=== PATIENT | male | born 1955 | race Caucasian/White ===

== ENCOUNTER → 2016-08-06 | Outpatient (CLI) | payer MEDICARE | END | disposition home or self-care (01) | LOC: PCVCIMAG 12:36 | PROVIDERS: ATTEND Internal Medicine Cardiovascular Disease | DX: I25.10 Atherosclerotic heart disease of native coronary artery without angina pectoris (principal); I73.9 Peripheral vascular disease, unspecified; I10 Essential (primary) hypertension; E78.5 Hyperlipidemia, unspecified | CPT/HCPCS: 80061; 93005; 93925; G0463 ==

== ENCOUNTER → 2017-02-15 | Outpatient (CLI) | payer MEDICARE ==
--- NOTE | 2017-02-16 00:10 | PCVCIMAG ---
EXAM: RIGHT LOWER EXTREMITY ARTERIAL DUPLEX INDICATION: Peripheral Arterial Disease. Leg pain. FINDINGS: Right Leg: Satisfactory arterial waveforms in the common femoral artery. 90% stenosis at the origin of the profunda femoral artery. 70-80% stenosis in the mid superficial femoral artery. The popliteal artery is patent. The anterior tibial, peroneal, and posterior tibial arteries are patent. IMPRESSION: 70-80% stenosis mid right superficial femoral artery. LOC:[id number]
== END | disposition home or self-care (01) ==
LOC: PCVCIMAG 12:48
PROVIDERS: ATTEND Internal Medicine Cardiovascular Disease
DX: I25.10 Atherosclerotic heart disease of native coronary artery without angina pectoris (principal); E78.5 Hyperlipidemia, unspecified; I10 Essential (primary) hypertension; I70.201 Unspecified atherosclerosis of native arteries of extremities, right leg; F17.200 Nicotine dependence, unspecified, uncomplicated; Z79.82 Long term (current) use of aspirin; Z90.5 Acquired absence of kidney; Z79.899 Other long term (current) drug therapy; Z88.8 Allergy status to other drugs, medicaments and biological substances
CPT/HCPCS: 36415; 80061; 93005; 93926; G0463

== ENCOUNTER → 2017-06-22 | Outpatient (CLI) | payer MEDICARE ==
[~2017-06-22] MED LIST: DIAZEPAM 10 MG TABLET. ONE; EPINEPHrine 1 MG/ML VIAL ONE; EPTIFIBATIDE BOLUS 2,000 MCG/ML 10ML VIAL. IV ONE; HEPARIN SODIUM 5,000 UNIT/ML VIAL for PCVC. ONE; HEPARIN for ARTERIAL LINE 1,500 ML ONE; IODIXANOL 270 MG/ML 100 ML VIAL. ONE; IOHEXOL 350 MG/ML 100 ML VIAL. ONE; IV NORMAL SALINE 1000ML BAG 1,000 ML ONE; LIDOCAINE 1% Multi-Dose 20 ML VIAL. ONE; MIDAZOLAM HCL/PF 2 MG/2 ML VIAL. ONE; NITROGLYCERIN PREMIX 250 ML IV ONE; fentaNYL PF VIAL 100 MCG/2 ML VIAL ONE; hydrALAZINE 20 MG/ML VIAL. ONE
--- NOTE | 2017-06-22 19:12 | PCVCINTER ---
EXAM: 1. AORTOGRAM AND BILATERAL LOWER EXTREMITY RUNOFF ANGIOGRAM 2. BILATERAL RENAL ANGIOGRAPHY 3. RIGHT SUPERFICIAL FEMORAL ARTERY ATHERECTOMY AND STENT PLACEMENT. 4. SECONDARY THROMBECTOMY RIGHT SUPERFICIAL FEMORAL ARTERY. 5. DRUG COATED BALLOON ANGIOPLASTY RIGHT SUPERFICIAL FEMORAL ARTERY. INDICATION: Peripheral arterial disease. Coronary artery disease. Right leg claudication. Hypertension. Renal atherosclerosis. PROCEDURE: Procedure and risks of angiography intervention is appropriate including limb loss stroke and were discussed with the patient's family and consent obtained. The patient's left groin was prepped abnormal sterile fashion. IV conscious sedation was used to procedure with appropriate monitoring from 10:30 AM through 11:45 AM. Ultrasound was used to interrogate the left groin and showed the left common femoral artery to be patent. A permanent spot film was obtained. Under ultrasound guidance access into the left common femoral artery was obtained and a 5 Libyan sheath was placed. Through this a 5 Libyan flush catheter was placed into the abdominal aorta at the level of the renal arteries and AP aortogram was performed. Catheter was positioned at the aortic bifurcation and both oblique views of the pelvis were obtained. Catheter was positioned into the left external iliac artery and left leg runoff angiography was performed. Catheter was exchanged for a visceral catheter was placed into the right renal arteries and right renal angiograms obtained. Catheter was placed into the the left renal arteries and left renal angiograms were obtained. Catheter was advanced to the level of the right external iliac artery and right leg runoff angiography was obtained. Patient was given 4500 units of heparin. A 6 Libyan crossover sheath was placed via the left groin to the level of the right common femoral artery. Atherectomy of the right superficial femoral artery was performed with 2.0 mm SpectranetKnowmia laser atherectomy catheter in the standard fashion. Following atherectomy small areas of thrombus were observed and because of this secondary thrombectomy throughout the right superficial femoral artery was carried out with mechanical suction thrombectomy catheter in the standard fashion. Minimal debris was removed. Following this drug coated balloon angioplasty of the right superficial femoral artery was carried out with a 6 x 120 and 6 x 40 Spectranetics Steller X MONUMENT ERECTOR catheter. Stent placement across the areas of high-grade stenosis in the right superficial femoral artery was carried out with a 6 x 120 Smart control stent with subsequent dilatation to 6.0 mm. Follow-up angiogram was performed. Catheters and wires removed. Sheath was removed and hemostasis obtained using the FISH device. No immediate complications. FINDINGS: Aortogram: There are 2 right and one left renal artery. Moderate plaque infrarenal abdominal aorta without significant stenosis. Pelvis: Scattered plaque in the right and left common and external iliac arteries without significant stenosis. The right and left common femoral arteries are patent. Both profunda femoral arteries are patent. Right renal artery: There are 2 right renal arteries the lower is a small accessory artery. No high-grade renal artery stenosis is seen. Left renal artery: Moderate plaque proximal vessel does not cause significant stenosis. No branch vessel stenosis. Right leg: Areas of 80% stenosis in the mid and distal superficial femoral artery. The popliteal artery is patent. Three-vessel runoff into the foot. Left leg: Scattered plaque throughout the superficial femoral artery and popliteal artery without significant stenosis. Three-vessel runoff into the foot. Right superficial femoral artery: Following procedure as above vessel shows good patency with no significant residual stenosis. IMPRESSION: 80% stenosis mid/distal right superficial femoral artery was treated as above with good patency restored. impression LOC:[place] [id number]
--- NOTE | 2017-06-23 13:34 | PCVCINTER ---
APPROVED REPORT Patient Details Patient Status: Room #: 2 The patient is a 61 year-old Male Event Personnel Álvaro Joya MD, Redd Cooper RN, Jr. Jesus Rojas MD, Adriano Ortiz RT(R)(), Lazara Peter RT(R) Risk Factors Arterial HypertensionDysplipidemia (Type: 1), Peripheral Vascular Disease, Hypercholesterolemia, Last Creatanine 0.8Tobacco History (Current/Recent(w/in 1 year)) Previous Procedures/Diagnoses Previous PCI, CAD, PVD, Hypertension Procedure Narrative The patient was brought electively to the Cardiac Catheterization Laboratory and was prepped and draped in a sterile manner. The left femoral was infiltrated with 1% Lidocaine subcutaneous anesthesia. The left femoral accessed via ultrasound guidance. A 6F sheath was inserted into the left femoral artery. Coronary angiography was performed using coronary diagnostic catheters. The right coronary system was accessed and visualized with a JR4 catheter. The left coronary system was accessed and visualized with a JL4 catheter. The left ventricle was accessed and visualized with a Straight pigtail catheter. Left ventriculogram was performed in HASTINGS projection. Closure device was deployed with a 6 Fr Fish. Hemostasis was obtained with manual pressure following sheath removal without any complications. The patient tolerated the procedure well and there were no complications associated with the procedure. There was no hematoma. Intraoperative Conscious Sedation Fentanyl 200.0 mcgVersed 4.0 mg Hemodynamics The right atrial mean pressure is 8 mmHg. The right ventricular pressure is 126 mmHg. The pulmonary artery pressure is 126 mmHg with a mean of 8 mmHg. The mean pulmonary capillary wedge pressure is 8 mmHg. The aortic pressure is 123/57 mmHg with a mean of 83 mmHg. The left ventricular pressure is 126/3 mmHg with a mean of 8 mmHg. Conclusion #1: Left ventricular size and systolic function EF 60% #2 left main with mild distal tapering narrowing giving rise to LAD and circumflex left main widely patent #3 LAD proximal stent has mild in-stent restenosis it extends to the apex with minimal irregularity diagonal system mildly diseased #4 small nondominant circumflex with mild irregularity #5 large dominant right coronary artery previously placed proximal stent has mild in-stent restenosis there is an eccentric 40-50% distal lesion prior to the bifurcation giving rise to PDA and IAN with mild disease Recommendations and plan or continue aggressive risk factor modification. No lifting for 48 hours no line tub Jacuzzi or Jean for a week
== END | disposition home or self-care (01) ==
LOC: PCVCINTER 07:41
PROVIDERS: ATTEND Nuclear Medicine Nuclear Cardiology
DX: I70.213 Atherosclerosis of native arteries of extremities with intermittent claudication, bilateral legs (principal); I70.1 Atherosclerosis of renal artery; I25.10 Atherosclerotic heart disease of native coronary artery without angina pectoris; I10 Essential (primary) hypertension
CPT/HCPCS: 36252; 37186; 37227; 75716; 76937; 93458; 99152; 99153; C1725; C1751; C1757; C1760; C1769; C1876; C1885; C1894; C2623; J0171; J0360; J0690; J1644; J2250; J3010; J3490; J7030; Q9967; J1327

== ENCOUNTER → 2017-11-15 | Outpatient (CLI) | payer MEDICARE | END | disposition home or self-care (01) | LOC: PCVCIMAG 13:56 | DX: I73.9 Peripheral vascular disease, unspecified (principal); I77.9 Disorder of arteries and arterioles, unspecified; I25.10 Atherosclerotic heart disease of native coronary artery without angina pectoris; I10 Essential (primary) hypertension; K50.919 Crohn's disease, unspecified, with unspecified complications; E78.00 Pure hypercholesterolemia, unspecified; F17.210 Nicotine dependence, cigarettes, uncomplicated; Z79.899 Other long term (current) drug therapy | CPT/HCPCS: 80061; 93005; 93923; 93926; G0463 ==

== ENCOUNTER → 2018-12-06 | Outpatient (CLI) | payer MEDICARE | END | disposition home or self-care (01) | LOC: PCVCCLINIC 09:20 | PROVIDERS: ATTEND Internal Medicine Cardiovascular Disease | DX: I25.10 Atherosclerotic heart disease of native coronary artery without angina pectoris (principal); E78.00 Pure hypercholesterolemia, unspecified; I73.9 Peripheral vascular disease, unspecified; I82.412 Acute embolism and thrombosis of left femoral vein; I10 Essential (primary) hypertension; F17.210 Nicotine dependence, cigarettes, uncomplicated | CPT/HCPCS: 36415; 80061; 93005; G0463 ==

== ENCOUNTER → 2019-01-09 | Outpatient (CLI) | payer MEDICARE ==
--- NOTE | 2019-01-09 17:25 | PCVCIMAG ---
APPROVED REPORT Study performed: 01/09/2019 14:50:59 Exam: Stress Echocardiogram Ht: 6 ft 0 in Medical History Medical History: CAD s/p stent, HTN, Hyperlipidemia, PAD, Cardiac Risk Factors: Tobacco History (Current/Recent), HTN Previous Cardiac Procedures: PCI,Myocardial infarction Exercise History: Indeterminate Procedure The patient underwent an Exercise Stress Test using the Heidy Protocol. Blood pressure, heart rate, and EKG were monitored. An Echocardiogram was performed by plant facilities technician in four stages in quad fashion. At peak stress, four selected images were obtained and placed side by side with resting images for comparison. Stress Test Details Stress Test: Exercise stress testing was performed using a Heidy protocol. HR Resting HR: 82 bpmMax Heart Rate (APMHR): 156 bpm Max HR Achieved: 146 bpmTarget HR (85% APMHR): 132 bpm % of APMHR: 93 Recovery HR: 94 bpm HR response to stress: Normal HR response to stress BP Resting BP: 142/86 mmHg Max BP: 206/86 mmHg Recovery BP: 148/70 mmHg BP response to stress: Mildly hypertensive ECG Resting ECG: Sinus Rhythm Stress ECG: Sinus Rhythm ST Change: Non-ischemic Arrhythmia: Occasional isolated and couplet PVCs Recovery ECG: Sinus Rhythm Recovery ST Change: Non-ischemic Recovery Arrhythmia: None Clinical Reason for Termination: Maximal effort Stress Symptoms: fatigue Exercise duration: 6 min 00 sec Highest Stage Achieved: Stage 2: 2.5 mph at 12% grade. Exercise capacity: 7.2 METs Overall Exercise Capacity for Age: Poor Scale: Sedentary Angina Score: None No complications. Stress ECG Conclusion The patient exercised according to the HEIDY protocol for 6:00 mins; achieving a work level of 7.2 METS. The resting heart rate of 82 bpm mariama to a maximum heart rate of 146 bpm. This value [id number] % of the maximal, age-predicted heart rate. The resting blood pressure of 142/86 mmHg, mariama to a maximum blood pressure of 206/86 mmHg. The exercise test was stopped due to fatigue. Pre-Stress Echo The resting Echocardiogram showed normal left ventricular contractility with an estimated Ejection Fraction of about 55-60%. Normal wall motion in all segments on baseline images. Post-Stress Echo The stress Echocardiogram showed normal left ventricular contractility with an estimated Ejection Fraction of about 65-70%. Normal augmentation of wall motion in all segments on post stress images. Clinical No clinical or ECG evidence for ischemia. Conclusion Clinical Response: Non-ischemic Exercise Capacity: Below Average Stress ECG Response: Non-ischemic Stress Echo Images: Non-ischemic No clinical, EKG or echocardiographic evidence for ischemia. No echocardiographic evidence for exercise induced ischemia. Normal stress echocardiogram with maximal exercise stress. <Conclusion> No clinical, EKG or echocardiographic evidence for ischemia. No echocardiographic evidence for exercise induced ischemia. Normal stress echocardiogram with maximal exercise stress.
--- NOTE | 2019-01-09 17:27 | PCVCIMAG ---
EXAM: BILATERAL LOWER EXTREMITY ARTERIAL DUPLEX INDICATION: Peripheral Arterial Disease. Leg pain. FINDINGS: Right Leg: Common femoral artery is patent. 70% stenosis origin profunda femoral artery. Superficial femoral artery and popliteal artery are patent. Previous stent superficial femoral artery is patent. The anterior tibial, peroneal, and posterior tibial arteries are patent. Left Leg: Satisfactory arterial waveforms throughout the common/profunda/superficial femoral, popliteal, anterior tibial, peroneal, and posterior tibial arteries. No flow limiting stenosis seen. IMPRESSION: Previous right superficial femoral artery stent maintaining satisfactory patency. Unchanged 70% stenosis origin right profunda femoral artery. No flow limiting stenosis in the left lower extremity. LOC:[id number]
== END | disposition home or self-care (01) ==
LOC: PCVCIMAG 13:49
PROVIDERS: ATTEND Internal Medicine Cardiovascular Disease
DX: I25.10 Atherosclerotic heart disease of native coronary artery without angina pectoris (principal); I10 Essential (primary) hypertension; Z95.5 Presence of coronary angioplasty implant and graft; I73.9 Peripheral vascular disease, unspecified
CPT/HCPCS: 93325; 93351; 93925